=== PATIENT | male | born 1985 | race Caucasian/White ===

== ENCOUNTER 2018-03-12 17:22 | Emergency (ER) | payer MEDICAID ==
[~2018-03-12] VITALS: Ht 175.3 cm; Wt 74.8 kg
[2018-03-12 18:32] VITALS: BP 135/74
--- NOTE | 2018-03-12 18:37 | Emergency Room Report ---
History of Present Illness General Chief Complaint: Fever Source: Patient Present Illness HPI 32-year-old male presents to the emergency department complaining of 8 out of 10 in severity body aches and thighs, and upper arms in addition to fevers and chills times one day. Patient denies recent travel he reports multiple ill contacts as he is in a rehabilitation center. Patient reports some neck stiffness but denies photophobia or headache. Patient denies sore throat, cough , ear pain or nasal congestion/rhinorrhea. Patient is up-to-date with vaccinations except for yearly flu vaccination. Pt reports hx of gastritis and is requesting refill of medication for this. Allergies: Coded Allergies: No Known Allergies (Unverified , 03/12/18) Patient History Past Medical History: see triage record Past Surgical History: none Pertinent Family History: none Immunizations: UTD Reviewed Nursing Documentation: PMH: Agreed; PSxH: Agreed Nursing Documentation-PM Past Medical History: No History, Except For Hx Gastrointestinal Problems: Yes - GERD Review of Systems All Other Systems: negative except mentioned in HPI Physical Exam Vital Signs Date Time Temp Pulse Resp B/P (MAP) Pulse Ox O2 Delivery O2 Flow Rate FiO2 03/12/18 18:02 101.3 111 20 135/74 94 Room Air 101.3 Sp02 EP Interpretation: reviewed, normal General Appearance: alert, GCS 15, non-toxic, mild distress Head: normocephalic, atraumatic Eyes: bilateral eye normal inspection, bilateral eye PERRL, bilateral eye EOMI , bilateral eye other - no photophobia ENT: hearing grossly normal, normal voice, TMs + canals normal, uvula midline, moist mucus membranes Neck: full range of motion, no meningismus, no bony tend Respiratory: chest non-tender, lungs clear, normal breath sounds, speaking full sentences Cardiovascular #1: regular rate, rhythm Gastrointestinal: normal bowel sounds, non tender, soft Musculoskeletal: back normal, gait/station normal, normal range of motion, non- tender Neurologic: alert, oriented x3, responsive, motor strength/tone normal, sensory intact, normal gait, speech normal, grossly normal Psychiatric: judgement/insight normal Skin: normal color, no rash, warm/dry, well hydrated Lymphatic: other - subparotid LAD bilaterally Medical Decision Making PA Attestation Dr. Parisi is my supervising Physician whom patient management has been discussed with. Diagnostic Impression: Primary Impression: Acute viral syndrome ER Course 32-year-old male presents to the emergency department complaining of 8 out of 10 in severity body aches and thighs, and upper arms in addition to fevers and chills times one day. Patient denies recent travel he reports multiple ill contacts as he is in a rehabilitation center. Patient reports some neck stiffness but denies photophobia or headache. Patient denies sore throat, cough , ear pain or nasal congestion/rhinorrhea. Patient is up-to-date with vaccinations except for yearly flu vaccination. Pt reports hx of gastritis and is requesting refill of medication for this. Ddx considered but are not limited to URI, pneumonia, PE, strep pharyngitis, meningitis, influenza, OM/OE just to name a few. Vital signs: Pt. is febrile, the remaining VS are WNL H&PE are most consistent with Viral Syndrome suspicious for Influenza will treat clinically - no meningeal signs, Lungs are clear and oropharynx is not involved, no evidence of bacterial infection at this time. ORDERS: none required at this time, the diagnosis is clinical ED INTERVENTIONS: -Tylenol PO -Pepcid PO Pt. education on conservative treatment at home, as well as signs and symptoms that would indicate prompt return to the ED. DISCHARGE: At this time pt. is stable for d/c to home. Will provide printed patient care instructions, and any necessary prescriptions. Care plan and follow up instructions have been discussed with the patient prior to discharge. Last Vital Signs Date Time Temp Pulse Resp B/P (MAP) Pulse Ox O2 Delivery O2 Flow Rate FiO2 03/12/18 18:32 101.3 20 135/74 94 Room Air 101.3 03/12/18 18:02 111 Disposition: HOME, SELF-CARE Condition: Stable Scripts Ranitidine Hcl* (ZANTAC*) 150 Mg Tablet 150 MG ORAL TWICE A DAY for 7 Days, #14 TAB Prov: Emerita Arevalo 03/12/18 Acetaminophen* (TYLENOL EXTRA STRENGTH*) 500 Mg Tablet 500 MG ORAL Q6H PRN for Mild Pain/Temp > 100.5, #30 TAB 0 Refills Prov: Emerita Arevalo 03/12/18 Patient Instructions: Fever, Adult, [id number] Additional Instructions: Take medications as directed. Follow up with a Primary Care Provider in 3-5 days, even if your symptoms have resolved. --Please review list of primary care clinics, if you do not already have a primary care provider Return sooner to ED if new symptoms occur, or current symptoms become worse. - Please note that this Emergency Department Report was dictated using [employer] control nurse technology software, occasionally this can lead to erroneous entry secondary to interpretation by the dictation equipment. Emerita Arevalo Mar 12, 2018 18:37
[2018-03-12] MEDS ORDERED: TYLENOL EXTRA500 MG ORAL (18:38)
[2018-03-12] MEDS ORDERED: ZANTAC150 MG ORAL (18:51)
[2018-03-12 19:33] VITALS: BP 135/74
== END 2018-03-12 19:34 | disposition home or self-care (01) ==
LOC: EMR 18:55
DX: B34.9 Viral infection, unspecified (principal); K21.9 Gastro-esophageal reflux disease without esophagitis
CPT/HCPCS: 99283